=== PATIENT | female | born 1985 | race Caucasian/White ===

== ENCOUNTER 2022-11-16 07:02 | Outpatient (CLI) | payer BC | END 2022-11-16 07:03 | disposition home or self-care (01) | LOC: BICULT 07:02 | PROVIDERS: ATTEND Physician Assistant Medical | DX: K21.9 Gastro-esophageal reflux disease without esophagitis (principal); K92.1 Melena; R11.0 Nausea; R14.0 Abdominal distension (gaseous); R19.5 Other fecal abnormalities; Z86.010 Personal history of colon polyps; K83.8 Other specified diseases of biliary tract | CPT/HCPCS: 76705 ==

== ENCOUNTER 2023-01-11 07:37 | Outpatient (CLI) | payer BC ==
[2023-01-11 08:21] LABS: #Eosinphils 0.1 10x3/uL (0.0-0.5); #Monocytes 0.7 10x3/uL (0.0-1.1); #Neutrophils 4.5 10x3/uL (1.5-8.4); %Basophils 0.3 % (0.0-2.0); %Eosinophils 1.6 % (0.0-6.0); %Lymphocytes 29.5 % (18.0-47.0); %Monocytes 8.9 % (0.0-10.0); %Neutrophils 59.2 % (40.0-75.0); Hemoglobin 13.8 g/dL (12.0-15.5); Mean Corpuscular HGB CONC 33.7 g/dL (32.0-36.0); Mean Corpuscular Hemoglobin 30.9 pg (27.0-33.0); Mean Corpuscular Volume 91.9 fl (81.6-98.3); Mean Platelet Volume 9.4 fl (7.4-10.4); Platelet Count 312 10x3/uL (150-450); RBC Distribution Width 12.6 % (11.5-14.5); Red Blood Cell (RBC) Count 4.46 10x6/uL (3.90-5.03); White Blood Cell (WBC) Count 7.6 10x3/uL (3.5-10.5)
[2023-01-11 08:38] LABS: ALT (SGPT) 13 U/L (8-55); AST (SGOT) 15 U/L (5-34); Albumin 4.4 g/dL (3.5-5.0); Alkaline Phosphatase 52 U/L (40-110); Anion Gap 11 mmol/L (10-20); BUN (Urea Nitrogen) 16 mg/dL (7.0-18.7); Bilirubin, Direct 0.2 mg/dL (0.1-0.3); Bilirubin, Total 0.6 mg/dL (0.2-1.2); Calc. Creatinine Clearance 0 mL/min (70-130); Calcium 8.9 mg/dL (7.8-10.44); Carbon Dioxide 26 mmol/L (22-29); Chloride 106 mmol/L (98-107); Estimated GFR 105; Globulin 2.2 g/dL (2.4-3.5); Glucose 89 mg/dL (70-105); Potassium 4.1 mmol/L (3.5-5.1); Protein, Total 6.6 g/dL (6.0-8.3); Sodium 139 mmol/L (136-145)
== END 2023-01-11 07:38 | disposition home or self-care (01) ==
LOC: LABBT 07:37
PROVIDERS: ATTEND Surgery
DX: Z01.812 Encounter for preprocedural laboratory examination (principal); K80.20 Calculus of gallbladder without cholecystitis without obstruction; K83.8 Other specified diseases of biliary tract
CPT/HCPCS: 80053; 80076; 85025

== ENCOUNTER 2023-01-13 08:49 | Day surgery (SDC) | payer BC ==
[2023-01-11 08:12] VITALS: BMI 29.4
[2023-01-13] MEDS ORDERED: Midazolam HCl 2 mg/2 ml Vial ONE (11:09)
[2023-01-13] MEDS ORDERED: Bupivacaine/Epinephrine 0.25% 30 ML VIAL ONE (11:11)
[2023-01-13] MEDS ORDERED: Iopamidol 30 ML ONE (11:12)
[2023-01-13] MEDS ORDERED: fentaNYL 50 mcg/mL 1 mL Vial ONE ×3 (11:18→13:32)
[2023-01-13] MEDS ORDERED: cefTRIAXone (ROCEPHIN) 2 GM VIAL ONE (11:23)
[2023-01-13] MEDS ORDERED: Sodium Chloride 0.9% 100 ML ONE (11:24)
[2023-01-13] MEDS ORDERED: cefOXitin 2 GM VIAL ONE (11:25)
[2023-01-13] MEDS ORDERED: PROPOFOL 200 MG/20 ML VIAL ONE (11:40)
[2023-01-13] MEDS ORDERED: Ondansetron PF 4 MG/2 ML Vial ONE ×2 (11:40→13:12)
[2023-01-13] MEDS ORDERED: Dexamethasone 20 MG/5 ML VIAL ONE (11:40)
[2023-01-13] MEDS ORDERED: Lidocaine 1% PF 5 ML VIAL ONE (11:40)
[2023-01-13] MEDS ORDERED: Rocuronium Bromide 10 MG/ML (10ML VIAL) ONE (11:40)
[2023-01-13] MEDS ORDERED: SUGAMMADEX SODIUM 200 MG/2 ML VIAL ONE (12:21)
[2023-01-13] MEDS ORDERED: Promethazine HCl 25 MG/ML VIAL ONE (13:32)
[2023-01-13] MEDS ORDERED: HYDROcodone/Acetaminophen 5/325 mg Tablet ONE (14:48)
== END 2023-01-13 15:34 | disposition home or self-care (01) ==
LOC: SDC 08:49
PROVIDERS: ATTEND Surgery
PROC: 0FT44ZZ Resection of Gallbladder, Percutaneous Endoscopic Approach (ICD-10-PCS; principal; 2023-01-13)
DX: K80.10 Calculus of gallbladder with chronic cholecystitis without obstruction (principal); K83.8 Other specified diseases of biliary tract; Z90.710 Acquired absence of both cervix and uterus; Z88.6 Allergy status to analgesic agent
CPT/HCPCS: 47532; 88304; C1889; J0694; J0696; J1100; J2250; J2405; J2550; J2704; J3010; J3490; Q9967